=== PATIENT | male | born 1950 | race Caucasian/White ===

== ENCOUNTER 2017-05-15 17:48 | Emergency (ER) | payer MEDICARE, OTHER ==
[2017-05-15] MEDS ORDERED: SODIUM CHLORIDE 0.9% 1,000 ML IV STA (17:52)
--- NOTE | 2017-05-15 17:57 | ED ---
General Adult HPI - General Stated complaint: Altered Mental Status Time Seen by Provider: 05/15/17 17:52 Source: patient, EMS, RN notes reviewed, old records reviewed - History of Present Illness Initial comments: 66-year-old male with history of CAD, and previous CVA presents for evaluation of episode of left lower extremity weakness, left facial droop and slurred speech. EMS who was called to the scene by friends.Patient was outside of his home, leaning on a wall, unable to move. This was approximately 45 minutes prior to arrival. At 1700. Patient denies any slurred speech. Patient states he has had left arm and left leg weakness for several months. He is alert and oriented for EMS. EMS did report that the patient has residual left-sided weakness from previous CVA. He denies headache. Denies chest pain or shortness of breath. Denies nausea vomiting or diarrhea. - Related Data Home Medications Medication Instructions Recorded Confirmed No Known Home Medications [No 05/15/17 05/15/17 Known Home Medications] Allergies Allergy/AdvReac Type Severity Reaction Status Date / Time No Known Allergies Allergy Verified 05/15/17 18:10 Review of Systems ROS Statement: Those systems with pertinent positive or pertinent negative responses have been documented in the HPI. ROS Other: All systems not noted in ROS Statement are negative. Past Medical History Past Medical History: No Reported History, Coronary Artery Disease (CAD), COPD, Myocardial Infarction ([place]) Additional Past Medical History / Comment(s): 04/16/15 Pt presented to [facility] ER via EMS after he awoke this AM with weakness. EMS found bradycardic, cool and clammy. He was given atropine 0.5mg and his heart rate improved. He was determined to. be a STEMI and went directly to the [employer] [facility]. Cath was normal. Other HX: R ear infection recent- finished ABX but feels like he still has ear infection, L humerus fx 06/2014, skin cancer -pt. states an aggressive type , R foot and R leg pain if pt ambulates too far. Last Myocardial Infarction Date:: 04/16/15 History of Any Multi-Drug Resistant Organisms: None Reported Past Surgical History: No Surgical Hx Reported, Heart Catheterization, Tonsillectomy Additional Past Surgical History / Comment(s): 04/16/15 Cardiac cath-normal. Skin cancer removal L arm, colonoscopy-normal. Past Anesthesia/Blood Transfusion Reactions: No Reported Reaction Additional Past Anesthesia/Blood Transfusion Reaction / Comment(s): Pt has never recieved blood. Smoking Status: Current every day smoker - Past Family History Father Family Medical History: No Reported History Mother Family Medical History: Cancer Additional Family Medical History / Comment(s): Mother of lung cancer. She was a smoker. General Exam General appearance: alert, in no apparent distress Head exam: Present: atraumatic, normocephalic Eye exam: Present: normal appearance, PERRL ENT exam: Present: normal exam, mucous membranes dry Neck exam: Present: normal inspection. Absent: tenderness, meningismus Respiratory exam: Present: normal lung sounds bilaterally. Absent: respiratory distress Cardiovascular Exam: Present: regular rate, normal rhythm GI/Abdominal exam: Present: soft. Absent: distended, tenderness Extremities exam: Present: other (Left upper and left lower extremity weakness please see NIH) Neurological exam: Present: alert, oriented X3, motor sensory deficit. Absent: CN II-XII intact Psychiatric exam: Present: normal affect, normal mood Skin exam: Present: warm, dry, intact. Absent: cyanosis, diaphoretic Course Vital Signs 05/15/17 05/15/17 05/15/17 17:51 18:51 19:05 Temperature 97.1 F L Pulse Rate 79 66 72 Respiratory 18 18 18 Rate Blood Pressure 154/64 177/60 141/61 O2 Sat by Pulse 99 98 96 Oximetry - Reevaluation(s) Reevaluation #1: 05/15/17 1846 On reevaluation after patient returns from computed tomography scan, his neuro exam is significantly worsened. He has flaccid paralysis of the left upper and left lower extremity. He has facial droop on the left. Stroke is called at 1848. Reevaluation #2: 05/15/17 1910 Patient's strength is improved, he still has weakness and drift of the left upper extremity, weakness in the left lower extremity is somewhat improved. Reevaluation #3: 05/15/17 19:23 Patient is evaluated by neurology via stroke robot. They do recommend TPA at this time. EKG Findings - EKG Comments: EKG Findings:: EKG shows sinus rhythm with marked sinus arrhythmia, ventricular rate 67, AL interval 150, QRS duration 82, QTC 441, no ST segment elevation or depression Medical Decision Making - Medical Decision Making 66-year-old male with history of CVA. This was initially thought to be on the left, however after discussion with the patient's daughter previous stroke affected the right side of the body. Best available time course for symptom onset is approximately 1700. At the time of presentation patient had minor drift of the left upper left lower extremity. No facial droop. No dysarthria. Patient went to CAT scan at approximately 1830, returned at 1846. Repeat evaluation at this time revealed left-sided paralysis. There was no significant movement of the left upper or left lower extremity. At this time stroke was activated. Patient also developed left-sided facial droop at that time. Patient be admitted to CT angiography. Stroke neurologist was called. I was able to discuss with the patient and the patient's daughter who is out of state the risks and benefits of TPA. Patient deferred to his daughter for decision making. Patient's daughter Norah discussed this with her sister and they both agreed that TPA was the best option at this time. I agree, and stroke neurologist also agrees. Initial head CT shows shows left parietal old or subacute infarction. This is not consistent with the patient's presentation. Diagnosis: Acute CVA status post TPA - Lab Data Result diagrams: 05/15/17 18:00 05/15/17 18:00 Lab Results 05/15/17 05/15/17 05/15/17 Range/Units 18:00 18:00 18:00 WBC 7.0 (3.8-10.6) k/uL RBC 3.84 L (4.30-5.90) m/uL Hgb 13.4 (13.0-17.5) gm/dL Hct 40.6 (39.0-53.0) % MCV 105.8 H (80.0-100.0) fL MCH 35.0 (25.0-35.0) pg MCHC 33.1 (31.0-37.0) g/dL RDW 13.5 (11.5-15.5) % Plt Count 266 (150-450) k/uL Neutrophils % 70 % Lymphocytes % 21 % Monocytes % 7 % Eosinophils % 1 % Basophils % 1 % Neutrophils # 4.9 (1.3-7.7) k/uL Lymphocytes # 1.4 (1.0-4.8) k/uL Monocytes # 0.5 (0-1.0) k/uL Eosinophils # 0.1 (0-0.7) k/uL Basophils # 0.0 (0-0.2) k/uL Macrocytosis Slight PT (9.0-12.0) sec INR (<1.2) APTT (22.0-30.0) sec Sodium 134 L (137-145) mmol/L Potassium 4.4 (3.5-5.1) mmol/L Chloride 106 (98-107) mmol/L Carbon Dioxide 21 L (22-30) mmol/L Anion Gap 7 mmol/L BUN 6 L (9-20) mg/dL Creatinine 0.76 (0.66-1.25) mg/dL Est GFR (MDRD) Af Amer >60 (>60 ml/min/1.73 sqM) Est GFR (MDRD) Non-Af >60 (>60 ml/min/1.73 sqM) Glucose 89 (74-99) mg/dL POC Glucose (mg/dL) (75-99) mg/dL POC Glu Windshield Installer ID Calcium 8.2 L (8.4-10.2) mg/dL Total Bilirubin 0.5 (0.2-1.3) mg/dL AST 29 (17-59) U/L ALT 33 (21-72) U/L Alkaline Phosphatase 46 (38-126) U/L Total Creatine Kinase 25 L (55-170) U/L CK-MB (CK-2) 0.4 (0.0-2.4) ng/mL CK-MB (CK-2) Rel Index 1.6 Troponin I <0.012 (0.000-0.034) ng/mL Total Protein 5.8 L (6.3-8.2) g/dL Albumin 3.3 L (3.5-5.0) g/dL 05/15/17 05/15/17 Range/Units 18:00 18:49 WBC (3.8-10.6) k/uL RBC (4.30-5.90) m/uL Hgb (13.0-17.5) gm/dL Hct (39.0-53.0) % MCV (80.0-100.0) fL MCH (25.0-35.0) pg MCHC (31.0-37.0) g/dL RDW (11.5-15.5) % Plt Count (150-450) k/uL Neutrophils % % Lymphocytes % % Monocytes % % Eosinophils % % Basophils % % Neutrophils # (1.3-7.7) k/uL Lymphocytes # (1.0-4.8) k/uL Monocytes # (0-1.0) k/uL Eosinophils # (0-0.7) k/uL Basophils # (0-0.2) k/uL Macrocytosis PT 11.7 (9.0-12.0) sec INR 1.2 H (<1.2) APTT 24.1 (22.0-30.0) sec Sodium (137-145) mmol/L Potassium (3.5-5.1) mmol/L Chloride (98-107) mmol/L Carbon Dioxide (22-30) mmol/L Anion Gap mmol/L BUN (9-20) mg/dL Creatinine (0.66-1.25) mg/dL Est GFR (MDRD) Af Amer (>60 ml/min/1.73 sqM) Est GFR (MDRD) Non-Af (>60 ml/min/1.73 sqM) Glucose (74-99) mg/dL POC Glucose (mg/dL) 99 (75-99) mg/dL POC Glu Windshield Installer Jaja Perales Calcium (8.4-10.2) mg/dL Total Bilirubin (0.2-1.3) mg/dL AST (17-59) U/L ALT (21-72) U/L Alkaline Phosphatase (38-126) U/L Total Creatine Kinase (55-170) U/L CK-MB (CK-2) (0.0-2.4) ng/mL CK-MB (CK-2) Rel Index Troponin I (0.000-0.034) ng/mL Total Protein (6.3-8.2) g/dL Albumin (3.5-5.0) g/dL Critical Care Time Critical Care Time: Yes Total Critical Care Time: 40 Disposition Clinical Impression: CVA (cerebral vascular accident) Disposition: OTHER INSTITUTION NOT DEFINED Condition: Serious Referrals: Ryan James DO [Primary Care Provider] - 1-2 days - Out of Hospital Transfer - Req. Specs Out of Hospital Transfer - Requested Specifics: Surgical ICU (Transfer to [facility] in [facility])
[2017-05-15 18:14] LABS: Basophils % (A) 1 %; CH 35.1; CHCM 33.3; Eosinophils # (A) 0.1 k/uL (0-0.7); Eosinophils % (A) 1 %; HCT 40.6 % (39.0-53.0); HDW 2.03; HGB 13.4 gm/dL (13.0-17.5); Luc # (Auto) 0.09; Luc % (Auto) 1; Lymphocytes # (A) 1.4 k/uL (1.0-4.8); Lymphocytes % (A) 21 %; MCHC 33.1 g/dL (31.0-37.0); MCV 105.8 fL (80.0-100.0); Macrocytosis Slight; Mean Platelet Volume 7.6; Monocytes # (A) 0.5 k/uL (0-1.0); Monocytes % (A) 7 %; Neutrophils # (A) 4.9 k/uL (1.3-7.7); Neutrophils % (A) 70 %; RBC 3.84 m/uL (4.30-5.90); RDW 13.5 % (11.5-15.5); WBC (Perox) 7.13
[2017-05-15 18:27] LABS: ALT 33 U/L (21-72); AST 29 U/L (17-59); Alkaline Phosphatase 46 U/L (38-126); Anion Gap 7 mmol/L; Blood Urea Nitrogen 6 mg/dL (9-20); Calcium 8.2 mg/dL (8.4-10.2); Carbon Dioxide 21 mmol/L (22-30); Chloride 106 mmol/L (98-107); Glucose 89 mg/dL (74-99); Non-African American GFR(MDRD) >60 (>60 ml/min/1.73 sqM); Potassium 4.4 mmol/L (3.5-5.1); Sodium 134 mmol/L (137-145); Total Bilirubin 0.5 mg/dL (0.2-1.3); Total Protein 5.8 g/dL (6.3-8.2)
[2017-05-15 18:28] LABS: INR 1.2 (<1.2); Partial Thromboplastin Time 24.1 sec (22.0-30.0); Prothrombin Time 11.7 sec (9.0-12.0)
[2017-05-15 18:36] LABS: Creatine Kinase 25 U/L (55-170)
[2017-05-15] MEDS ORDERED: RX INFO: IV CONTRAST WAS GIVEN 1 EACH MISC MISCELLANE PRN (18:45)
--- NOTE | 2017-05-15 18:45 | CT ---
EXAMINATION TYPE: CT brain wo con for TPA DATE OF EXAM: 05/15/2017 COMPARISON: 04/16/2015 HISTORY: Altered mental status, hx of stroke. CT DLP: 1115 mGycm Automated exposure control for dose reduction was used. FINDINGS: There is a wedge-shaped 5 cm area of hypodensity in the left posterior parietal lobe. There is no mas s effect nor midline shift. There is no sign of intracranial hemorrhage. The calvarium is intact. Richard tricles have normal size. There is mild cerebral atrophy. IMPRESSION: OLD OR SUBACUTE LEFT POSTERIOR PARIETAL CORTICAL INFARCT. THIS IS NEW COMPARED TO THE OLD CT SCAN OF 04/16/2015. NO HEMORRHAGE.
[2017-05-15 18:47] LABS: Creatine Kinase MB 0.4 ng/mL (0.0-2.4); Troponin I <0.012 ng/mL (0.000-0.034)
--- NOTE | 2017-05-15 18:47 | XR ---
EXAMINATION TYPE: XR chest 2V DATE OF EXAM: 05/15/2017 COMPARISON: 04/17/2015 HISTORY: Altered mental status TECHNIQUE: Frontal and lateral views of the chest are obtained. FINDINGS: There is no heart failure nor confluent pneumonic infiltrate. Thoracic aorta is atheromato us. There are chest leads. 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 There is no pleural effusion. There is pleural thickening at the lung apices. There is old left clavicle healed fracture. IMPRESSION: No active cardiopulmonary disease. No change.
[2017-05-15 18:52] LABS: Glucose,Whole Blood 99 mg/dL (75-99)
[2017-05-15] MEDS ORDERED: tPA (Alteplase) PER PHARMACY 1 EACH MISC MISCELLANE PRN (19:09)
[2017-05-15] MEDS ORDERED: ALTEPLASE 44 MG in EMPTY BAG 1 BAG IV STA (19:10)
[2017-05-15] MEDS ORDERED: ALTEPLASE BOLUS 5 MG in EMPTY SYRINGE 1 SYR IV STA (19:10)
--- NOTE | 2017-05-15 19:40 | CT ---
EXAMINATION TYPE: CT angio head neck DATE OF EXAM: 05/15/2017 HISTORY: LEFT SIDED WEAKNESS. COMPARISON: NONE CT DLP: 338 mGycm. Automated Exposure Control for Dose Reduction was Utilized. TECHNIQUE: CTA scan of the neck is performed with IV Contrast, patient injected with 65 mL of Omnipa que 350, axial images are obtained, coronal and sagittal reformatted images are reviewed. Three-D rec onstructed images are created on an independent workstation and reviewed. FINDINGS: There is arterial flow in the anterior middle and posterior cerebral arteries. There is arterial flow in the vertebrobasilar artery system. The basilar artery fills more from the right side. There is no mass effect. There is no evidence of stenosis. There is normal contrast opacification of the venous sinuses. There is wedge-shaped hypodense area in the left posterior parietal lobe consistent with old or subacute infarct. There is normal branching pattern of the great vessels on the aortic arch. There is arterial flow in the common internal and external carotid arteries bilaterally. The right carotid artery bifurcation a ppears fairly normal. There is bilateral arterial flow in the vertebral arteries. There is significant plaque on the left side at the proximal internal carotid artery.. The lumen narr owing is estimated to be 80%. There is a 2cm segment of atherosclerotic plaque. External carotid shasta karis appear widely patent. IMPRESSION: There is approximate 80% stenosis due to calcified plaque in the proximal left internal c arotid artery. At one point the lumen narrowing could be more than 90%. No evidence of stenosis on th e right side. No intracranial arterial abnormality identified. No evidence of dissection.
[2017-05-15 19:44] VITALS: RESP 16
[2017-05-15 20:20] VITALS: PULSE 67
[2017-05-15 20:32] VITALS: BP 154/67
[2017-05-15 20:35] VITALS: TEMP 98.2
== END 2017-05-15 20:34 | disposition other institution (70) ==
LOC: EC 17:48
DX: I63.9 Cerebral infarction, unspecified (principal); F17.200 Nicotine dependence, unspecified, uncomplicated
CPT/HCPCS: 96360 ×2; 96361 ×2; 99291 ×2; 37195 ×2; 36415; 93005; 80053; 82550; 82553; 84484; 85025; 85610; 85730; 71020; 70496; 70450; 70498; Q9967; J2997

== ENCOUNTER 2018-03-19 09:27 | Emergency (ER) | payer MEDICARE ==
[2018-03-19 09:38] VITALS: BP 123/73; PULSE 79; RESP 18; TEMP 97.8
--- NOTE | 2018-03-19 10:07 | ED ---
Skin/Abscess/FB HPI - General Chief complaint: Skin/Abscess/Foreign Body Stated complaint: Arms bruised Time Seen by Provider: 03/19/18 09:47 Source: patient, RN notes reviewed Mode of arrival: ambulatory Limitations: no limitations - History of Present Illness Initial comments: 67-year-old male presents emergency Department chief complaint of bruising. Patient states she's been having abnormal bruising of his arms last few months. He states is progressively getting worse. His family is concerned that he may have an issue. He does admit that he does take Plavix and aspirin. Patient does not take any warfarin, Coumadin, Eliquis, Robaxin or Xarelto. Patient denies any melena, hematochezia, hematemesis or coffee-ground emesis. Denies any chest pain, shortness breath, headache, dizziness, abdominal pain. He states he feels normal other than he has noticed the bruising which is not painful. - Related Data Home Medications Medication Instructions Recorded Confirmed No Known Home Medications 05/15/17 05/15/17 Allergies Allergy/AdvReac Type Severity Reaction Status Date / Time No Known Allergies Allergy Verified 03/19/18 09:32 Review of Systems ROS Statement: Those systems with pertinent positive or pertinent negative responses have been documented in the HPI. ROS Other: All systems not noted in ROS Statement are negative. Past Medical History Past Medical History: Coronary Artery Disease (CAD), COPD, Myocardial Infarction ([place]) Additional Past Medical History / Comment(s): 04/16/15 Pt presented to [facility] ER via EMS after he awoke this AM with weakness. EMS found bradycardic, cool and clammy. He was given atropine 0.5mg and his heart rate improved. He was determined to. be a STEMI and went directly to the [facility]. Cath was normal. Other HX: R ear infection recent- finished ABX but feels like he still has ear infection, L humerus fx 06/2014, skin cancer -pt. states an aggressive type , R foot and R leg pain if pt ambulates too far. Last Myocardial Infarction Date:: 04/16/15 History of Any Multi-Drug Resistant Organisms: None Reported Past Surgical History: Heart Catheterization, Tonsillectomy Additional Past Surgical History / Comment(s): 04/16/15 Cardiac cath-normal. Skin cancer removal L arm, colonoscopy-normal. Past Anesthesia/Blood Transfusion Reactions: No Reported Reaction Additional Past Anesthesia/Blood Transfusion Reaction / Comment(s): Pt has never recieved blood. Past Psychological History: No Psychological Hx Reported Smoking Status: Current every day smoker Past Alcohol Use History: None Reported Past Drug Use History: None Reported - Past Family History Father Family Medical History: No Reported History Mother Family Medical History: Cancer Additional Family Medical History / Comment(s): Mother of lung cancer. She was a smoker. General Exam Limitations: no limitations General appearance: alert, in no apparent distress Head exam: Present: atraumatic, normocephalic, normal inspection ENT exam: Present: normal oropharynx Neck exam: Present: normal inspection, full ROM. Absent: tenderness, meningismus, lymphadenopathy Respiratory exam: Present: normal lung sounds bilaterally. Absent: respiratory distress, wheezes, rales, rhonchi, stridor Cardiovascular Exam: Present: regular rate, normal rhythm, normal heart sounds. Absent: systolic murmur, diastolic murmur, rubs, gallop, clicks GI/Abdominal exam: Present: soft, normal bowel sounds. Absent: distended, tenderness, guarding, rebound, rigid Skin exam: Present: warm, dry, intact, normal color, other (Large areas of ecchymosis noted on the arms). Absent: rash Course Vital Signs 03/19/18 09:33 Temperature 97.8 F Pulse Rate 79 Respiratory 18 Rate Blood Pressure 123/73 O2 Sat by Pulse 97 Oximetry Medical Decision Making - Medical Decision Making 67-year-old female presented for bruising of his arms. Patient had lab work which showed normal hemoglobin normal coags. Patient's bruising is related to his Plavix and aspirin. Patient will be discharged return parameters were discussed. - Lab Data Result diagrams: 03/19/18 10:40 Lab Results 03/19/18 03/19/18 Range/Units 10:40 10:40 WBC 6.1 (3.8-10.6) k/uL RBC 4.27 L (4.30-5.90) m/uL Hgb 14.4 (13.0-17.5) gm/dL Hct 43.4 (39.0-53.0) % MCV 101.7 H (80.0-100.0) fL MCH 33.8 (25.0-35.0) pg MCHC 33.2 (31.0-37.0) g/dL RDW 12.4 (11.5-15.5) % Plt Count 253 (150-450) k/uL Neutrophils % 64 % Lymphocytes % 24 % Monocytes % 7 % Eosinophils % 2 % Basophils % 1 % Neutrophils # 3.9 (1.3-7.7) k/uL Lymphocytes # 1.5 (1.0-4.8) k/uL Monocytes # 0.4 (0-1.0) k/uL Eosinophils # 0.1 (0-0.7) k/uL Basophils # 0.0 (0-0.2) k/uL PT 10.6 (9.0-12.0) sec INR 1.1 (<1.2) APTT 22.9 (22.0-30.0) sec Disposition Clinical Impression: Multiple ecchymoses of both upper arms Disposition: HOME SELF-CARE Condition: Stable Instructions: Ecchymosis (ED) Additional Instructions: Please return to the Emergency Department if symptoms worsen or any other concerns. Is patient prescribed a controlled substance at d/c from ED?: No Referrals: [facility],Clinic [Primary Care Provider] - 1-2 days Time of Disposition: 11:19
[2018-03-19 10:52] LABS: Basophils % (A) 1 %; Eosinophils # (A) 0.1 k/uL (0-0.7); Eosinophils % (A) 2 %; HCT 43.4 % (39.0-53.0); HGB 14.4 gm/dL (13.0-17.5); Lymphocytes # (A) 1.5 k/uL (1.0-4.8); Lymphocytes % (A) 24 %; MCH 33.8 pg (25.0-35.0); MCHC 33.2 g/dL (31.0-37.0); MCV 101.7 fL (80.0-100.0); Mean Platelet Volume 7.1; Monocytes # (A) 0.4 k/uL (0-1.0); Monocytes % (A) 7 %; Neutrophils # (A) 3.9 k/uL (1.3-7.7); Neutrophils % (A) 64 %; Platelet Count 253 k/uL (150-450); RBC 4.27 m/uL (4.30-5.90); RDW 12.4 % (11.5-15.5); WBC 6.1 k/uL (3.8-10.6)
[2018-03-19 11:01] LABS: INR 1.1 (<1.2); Partial Thromboplastin Time 22.9 sec (22.0-30.0); Prothrombin Time 10.6 sec (9.0-12.0)
== END 2018-03-19 11:35 | disposition home or self-care (01) ==
LOC: EC 09:27
DX: R58 Hemorrhage, not elsewhere classified (principal); T45.525A Adverse effect of antithrombotic drugs, initial encounter; T39.015A Adverse effect of aspirin, initial encounter; I25.10 Atherosclerotic heart disease of native coronary artery without angina pectoris; I25.2 Old myocardial infarction; F17.200 Nicotine dependence, unspecified, uncomplicated; Z79.02 Long term (current) use of antithrombotics/antiplatelets; Z79.82 Long term (current) use of aspirin; Z95.5 Presence of coronary angioplasty implant and graft
CPT/HCPCS: 36415; 85025; 85610; 85730; 99283